=== PATIENT | female | born 1960 | race Caucasian/White ===

== ENCOUNTER 2024-08-16 20:41 | Emergency (ER) | payer BC, SELFPAY ==
--- NOTE | ~2024-08-16 | XR_ITS ---
EXAM: XR knee RT 3V DATE: 08/16/2024 21:04 HISTORY: SWELLING TO RIGHT KNEE SINCE TONIGHT. NKI. . COMPARISON: None available. FINDINGS: Decreased mineralization. No fracture or dislocation. No lytic or blastic lesion. Mild tri compartmental osteoarthritic change. No erosion or periosteal change. Soft tissues within normal limi ts. IMPRESSION: No acute osseous finding in the right knee. Reviewed, dictated and finalized at location [facility]
[2024-08-16 20:44] VITALS: BP 174/91; PULSE 105; RESP 18; TEMP 36.4; O2SAT 100
--- OUTSIDE RECORDS SUMMARY | 2024-08-16 20:45 | XMS_ITS | Continuity of Care Document ---
Author Organization [facility] Address [address] [facility] [place] [address] Phone Care Team Providers Care Parer Name Role Phone Jarrell Owens MD Unavailable Unavailable Allergies, Adverse Reactions, Alerts Substance Reaction Status Criticality No Known Allergies Active No Inform ation Medications Medication Instructions Dosage Effective Dates (start - stop) Status Comments ProAir HFA 90 mcg/actuation Aerosol Inhaler inhale 2 puff by inhalation route every 4 - 6 hours as needed - Active Singulair 10 mg tablet take 1 tablet (10MG) by oral route every day in the evening 10 MG - Active Procedures Procedure Date OFFICE/OUTPATIENT VISIT, EST OFFICE/OUTPATIENT VISIT, EST Advance Directives Directive Yes / No Effective Date File Name No Information Encounters Encounter Description Practice Location Reason(s) For Visit Diagnoses Date Provider Providers Copied on Encounter [facility], [address] [place], [place], [id number], tel:[phone] [facility] No Information [address] [place], [address] , [place]. tel:[phone] OFFICE/OUTPA TIENT VISIT, EST [facility], [address] [place], [place], [address], [place] tel:[phone] [facility] HTN (chief complaint) cough (chief complaint) Hypertension, UnspecifiedAllergic rhinitis, cause unspecifiedBronchit is, Acute [address] [place], [place], [id number] , [place]. tel:[phone] Referring Provider: Jarrell Owens, [address] [facility] [address], [place], [place], [id number]. tel:[phone] OFFICE/OUTPA TIENT VISIT, EST [facility], [address], [place], [place], [address], [place] tel:[phone] [facility] HTN (chief complaint) weight gain (chief complaint) Hypertension, UnspecifiedAbnormal weight gain [address], [place], [place], [address] , [place]. tel:[phone] Referring Provider: Jarrell Owens, [address] [place], [place], [address]. tel:[phone] Family History Family Member Type Diagnosis Age At Onset Brother Problem (finding) Alive and well Mother Problem (finding) CHF Father Problem (finding) Unknown Disease Payers Payer name Insurance type Covered constitution party ID Authoriza tion(s) No Information Social History Type Description Quantity Date Captured Comments Sex Female Smoking Status No Information Chief Complaint And Reason For Visit No Information Plan Of Treatment Date Type Action Status No Information History Of Present Illness Encounter Date Complaint History Of Prese nt Illness No Information Instructions Date Instruction Additional Infor mation No Information Assessments Type Assessment Date No Information
--- OUTSIDE RECORDS SUMMARY | 2024-08-16 20:45 | XMS_ITS | CONTINUITY OF CARE DOCUMENT ---
Author Name brianne decker Address Unknown Organization [facility] Address [address] [place] [address] [address] [place] [address] Phone [phone] Care Team Providers Care Blacktop Spreader Name Role Phone Cristian HINES, Geoff Unavailable [phone] OMA HINES, RUNDA Unavailable OMA HINES, RUNDA Unavailable PROBLEMS Condition Status Date Provider Notes Chest pain active Geoff Foster MD Palpitations active Geoff Foster MD HTN essential active Geoff Foster MD HYPERCHOLESTEROLEMIA active Geoff Foster MD ENCOUNTERS Date Type Provider Location Encounter Diag nosis - In-person encounter Office Visit Geoff Foster MD [facility] - In-person encounter Office Visit Geoff Foster MD [facility] Chest painPalpitationsHTN essentialHYPERCHOLESTEROLEMIA VITAL SIGNS Date Observation Value Provider Body Mass Index (Ratio) 20.72 kg/m2 [place] Foster MD blood pressure, diastolic 86 mm[Hg] Li nkLogic blood pressure, systolic 168 mm[Hg] Kelsie kLogic blood pressure, diastolic 86 mm[Hg] Ca therine Harvinder blood pressure, systolic 168 mm[Hg] Cat herine Harvinder oxygen saturation, oximetry 78 % Kristen Harvinder pulse rate 78 /min Kristen Harvinder respiratory rate E&M 16 /min Catheri ne Priddy weight E&M 117 [lb_av] Kristen Priddy blood pressure, cuff size regular Ca therine Priddy height E&M 63 [in_i] Kristen Priddy Body Mass Index (Ratio) 20.90 kg/m2 Damián en Roland blood pressure, diastolic 78 mm[Hg] Li nkLogic blood pressure, systolic 162 mm[Hg] Kelsie kLogic blood pressure, diastolic 78 mm[Hg] Sa ra Dobbins blood pressure, systolic 162 mm[Hg] Graham a Dobbins oxygen saturation, oximetry 99 % Eda Dobbins respiratory rate E&M 18 /min Eda Si ms pulse rate 107 /min Eda Dobbins weight E&M 118 [lb_av] Eda Dobbins height E&M 63 [in_i] Eda Dobbins ALLERGIES No Known Drug Allergies HISTORY OF MEDICATION USE Medication Status Instructions Dates Provider Indications Com ments metoprolol tartrate 25 mg tablet active Take 1 tablet by mouth twice a day Geoff Foster MD losartan-hydroch lorothiazide 100-12.5 mg tablet active Take 1 tablet by mouth once a day Eda Dobbins SOCIAL HISTORY Date Observation Value Provider smoking status Never smoker Geoff weaver MD social history reviewed E&M revi ewed - no changes required Geoff Foster MD social history E&M S moking History: Frederic chau has never smoked. Geoff Foster MD social history reviewed E&M revi ewed - no changes required Geoff Foster MD social history E&M S moking History: Frederic chau has never smoked. Geoff Foster MD smoking status Never smoker Eda Dobbins INSURANCE PROVIDERS Payer name Policy type / Coverage type Praveen red democrat ID [facility] Medicaid [id number] ADVANCE DIRECTIVES Name Date DISCUSSED - NO DECISION MADE TREATMENT PLAN Date Name Performer [id number],C,N o recurrence of pain. Stress test was normal. Pt has been reassured. Geoff Foster MD [id number],C,R eports fewer palpitations since she reduced caffeine intake. Geoff Foster MD [id number],S,O n losartan, HCTZ. Seems to be well-controlled. She continues to monitor her blood pressure regularly. Geoff Foster MD [id number],C,W as on statins for a year but she stopped them as she did not like the way she felt on them. Geoff Foster MD [id number],C,S he has been experiencing palpitations and CP for years. Has uncontrolled HTN and CHOL. Due to her sx and cardiac risk factors, will assess an echo and a stress test.Murmur noted on exam. Geoff Foster MD [id number],C,B een experiencing for years. WIll assess a rn cardiac rehab as they are disruptful to her life. Geoff Foster MD [id number],C, B P has been uncontrolled for years. She checks her BPs at home, reports 140-160 systolic range. Will start her on Metoprolol 25mg bid. C urrently on Losartan-hydrochlorothiazide 100-12.5 Mg . Geoff Foster MD Cardiology:No recurr ence of pain. Stress test was normal. Pt has been reassured. Geoff Foster MD Cardiology:Reports f ewer palpitations since she reduced caffeine intake. Geoff Foster MD Cardiology:On losart an, HCTZ. Seems to be well-controlled. She continues to monitor her blood pressure regularly. Geoff Foster MD Cardiology:Was on st atins for a year but she stopped them as she did not like the way she felt on them. Geoff Foster MD Cardiology:She has b een experiencing palpitations and CP for years. Has uncontrolled HTN and CHOL. Due to her sx and cardiac risk factors, will assess an echo and a stress test.Murmur noted on exam. Geoff Foster MD Cardiology:Been expe riencing for years. WIll assess a rn cardiac rehab as they are disruptful to her life. Geoff Foster MD Cardiology: B P has been uncontrolled for years. She checks her BPs at home, reports 140-160 systolic range. Will start her on Metoprolol 25mg bid. C urrently on Losartan-hydrochlorothiazide 100-12.5 Mg . Geoff Foster MD Date Name Monitor - Telemetry (Mobile Cardiac) Stress Exercise Card iolite Complete Echo HISTORY OF PROCEDURES Procedure Date Procedure Name Provider Procedure Notes S tatus EKG Geoff Foster MD complet ed
--- NOTE | 2024-08-16 21:18 | ED.LOWEXIN ---
HPI - Extremity Injury (Lower) General Chief Complaint: Extremity Problem,Nontraumatic Stated Complaint: lower extremity problem Time Seen by Provider: 08/16/24 20:54 Source: patient Mode of arrival: ambulatory History of Present Illness HPI Narrative: 64-year-old female with a history of hypertension presented with acute onset -- right knee pain with swelling. No trauma. decreased range of motion. She noted erythema around the knee. Subsequently the knee pain has decreased -- right lateral thigh pain for the past few days which has been radiating down the lateral thigh. MD complaint: knee injury Onset (ago): hour(s) ( 2 hours) Injury: Right: knee Type of Injury: other ( no injury) Place: home Relieving factors: immobilization Exacerbating factors: weight bearing and movement Other symptoms: none Related Data Allergies Allergy/AdvReac Type Severity Reaction Status Date / Time lisinopril Allergy Severe HIVES Verified 08/16/24 20:55 Review of Systems Review of Systems: All systems reviewed & are unremarkable except as noted in HPI and below PMFSH Past Medical History Medical History (Updated 08/16/24 @ 21:41 by Jono Qureshi MD) Hypertension Osteoporosis Exam Narrative: blood pressure is 174/91. Afebrile Const: General: ill appearing Nutritional Appearance: well nourished Orientation/consciousness: patient oriented x3 Limitations: no limitations HENMT: Head: normal to inspection Ears: external ears normal Face/Nose/Sinus: Normal external nose present Face and sinus: normal facial exam Mouth: Yes Normal oral and palatal mucosa present Throat: posterior oropharynx normal Eyes: Conjunctivae: conjunctivae normal Pupils: Equal, round and reactive pupils present EOM: EOMs intact bilaterally Direct Ophthalmoscopy: no photophobia Neck: Neck: normal visual inspection, no lymphadenopathy and no meningeal signs Chest: Chest palpation & inspection: normal inspection of the chest Resp: Effort & Inspection: normal respiratory effort Auscultation: clear to auscultation bilaterally Cardio: Rate: regular rate Rhythm: regular rhythm GI: GI Palp: Yes Soft to palpation Auscultation: normal bowel sounds Other: no tenderness/rigidity /rebound : General: Yes no CVA tenderness Back/Spine/Pelvis: Back: no CVA tenderness Skin: General skin exam: normal color Rashes: no rashes Wounds: no wounds Neuro: General: patient oriented x3, moves all extremities, no meningeal signs, no focal motor deficits and CN's II-XI intact bilaterally Cranial nerves: Yes Nystagmus not present Speech: normal speech Extrem: General: normal to inspection and no clubbing, cyanosis or edema Other: right knee-- no swelling. Erythema over the knee. Tenderness on palpation. Decreased range of motion. Right lateral thigh pain over the greater trochanter with tenderness. Suggestive of trochanteric bursitis Psych: Mental Status: mental status grossly normal Affect: normal affect Attitude: cooperative Course Course Emergency Course: Right knee pain-- x-ray the knee revealed arthritis without acute findings Vital Signs Vital signs: Vital Signs Temperature 36.4 C L 08/16/24 20:44 Pulse Rate 105 H 08/16/24 20:44 Respiratory Rate 18 08/16/24 20:44 Blood Pressure 174/91 H 08/16/24 20:44 Pulse Oximetry 100 08/16/24 20:44 Oxygen Delivery Room Air 08/16/24 20:44 Temperature 36.4 C L 08/16/24 20:44 Pulse Rate 105 H 08/16/24 20:44 Respiratory Rate 18 08/16/24 20:44 Blood Pressure 174/91 H 08/16/24 20:44 Pulse Oximetry 100 08/16/24 20:44 Oxygen Delivery Room Air 08/16/24 20:44 MDM - Extremity Injury (Lower) MDM Narrative Medical decision making narrative: right knee pain /arthritis Differential Diagnosis Differential diagnosis: Likely acute internal derangement of knee Discharge Plan Discharge Clinical Impression: Greater trochanteric bursitis of right hip Acute knee pain Qualifiers: Laterality: right Qualified Code(s): M25.561 - Pain in right knee Patient Disposition: Home, Self-Care Condition: Stable Instructions: Antibiotic Form, Hip Bursitis (ED), Knee Pain (ED) Patient Language: Arabic Prescriptions: New diclofenac sodium 50 mg tablet,delayed release (DR/EC) 50 mg PO Q12H PRN (Reason: pain) Qty: 30 0RF Follow-up/Referrals: UNKNOWN,DOCTOR [Non-Staff] - Time of Disposition: 21:41
--- OUTSIDE RECORDS SUMMARY | 2024-08-16 21:33 | XMS_ITS | Continuity of Care Document ---
Author Organization [facility] Address [address] [employer] [facility] [place] [address] Phone Care Team Providers Care Raise Drill Operator Name Role Phone Jarrell Owens MD Unavailable Unavailable Allergies, Adverse Reactions, Alerts Substance Reaction Status Criticality No Known Allergies Active No Inform ation Medications Medication Instructions Dosage Effective Dates (start - stop) Status Comments Singulair 10 mg tablet take 1 tablet (10MG) by oral route every day in the evening 10 MG - Active ProAir HFA 90 mcg/actuation Aerosol Inhaler inhale 2 puff by inhalation route every 4 - 6 hours as needed - Active Procedures Procedure Date OFFICE/OUTPATIENT VISIT, EST OFFICE/OUTPATIENT VISIT, EST Advance Directives Directive Yes / No Effective Date File Name No Information Encounters Encounter Description Practice Location Reason(s) For Visit Diagnoses Date Provider Providers Copied on Encounter [facility], [address] [place], [place], [id number], tel:[phone] [facility] No Information [address], [place], [address] , [place]. tel:[phone] OFFICE/OUTPA TIENT VISIT, EST [facility], [address] [place], [place], [address], tel:[phone] [facility] HTN (chief complaint) cough (chief complaint) Hypertension, UnspecifiedAllergic rhinitis, cause unspecifiedBronchit is, Acute [address] [place], [place], [address] , [place]. tel:[phone] Referring Provider: Jarrell Owens, [address] [facility] [address], [place], [place], [address]. tel:[phone] OFFICE/OUTPA TIENT VISIT, EST [facility], [address], [place], [place], [address], [place] tel:[phone] [facility] HTN (chief complaint) weight gain (chief complaint) Hypertension, UnspecifiedAbnormal weight gain [address], [place], [place], [address] , [place]. tel:[phone] Referring Provider: Jarrell Owens, [address] [place], [place], [address]. tel:[phone] Family History Family Member Type Diagnosis Age At Onset Brother Problem (finding) Alive and well Mother Problem (finding) CHF Father Problem (finding) Unknown Disease Payers Payer name Insurance type Covered libertarian ID Authoriza tion(s) No Information Social History [...]
--- OUTSIDE RECORDS SUMMARY | 2024-08-16 21:33 | XMS_ITS | CONTINUITY OF CARE DOCUMENT ---
Author Name brianne decker Address Unknown Organization [facility] Address [address] [place] [address] [address] [place] [address] Phone [phone] Care Team Providers Care Industrial Engineering Manager Name Role Phone Cristian HINES, Geoff Unavailable OMA HINES, RUNDA Unavailable [phone] OMA HINES, RUNDA Unavailable [phone] PROBLEMS Condition Status Date Provider Notes Chest pain active Geoff Foster MD Palpitations active Geoff Foster MD HTN essential active Geoff Foster MD HYPERCHOLESTEROLEMIA active Geoff Foster MD ENCOUNTERS Date Type Provider Location Encounter Diag nosis - In-person encounter Office Visit Geoff Fostre MD [facility] - In-person encounter Office Visit Geoff Foster MD [facility] Chest painPalpitationsHTN essentialHYPERCHOLESTEROLEMIA VITAL SIGNS Date [...] respiratory rate E&M 16 /min Catheri ne Nevis weight E&M 117 [lb_av] Kristen Nevis blood pressure, cuff size regular Ca therine Nevis height E&M 63 [in_i] Kristen Nevis Body Mass Index (Ratio) 20.90 kg/m2 Damián [...] Policy type / Coverage type Praveen red green party ID [facility] Medicaid [id number] ADVANCE DIRECTIVES Name Date DISCUSSED - NO DECISION MADE TREATMENT PLAN Date Name Performer [id number],C,N o recurrence of pain. Stress test was normal. Pt has been reassured. Geoff Foster MD [id number],C,R eports fewer palpitations since she reduced caffeine intake. Geoff Foster MD [id number],S,O n losartan, HCTZ. Seems to be well-controlled. She continues to monitor her blood pressure regularly. Geoff Foster MD [id number],C,W as on statins for a year but she stopped them as she did not like the way she felt on them. Geoff Foster MD [id number],C,S he has been experiencing palpitations and CP for years. Has uncontrolled HTN and CHOL. Due to her sx and cardiac risk factors, will assess an echo and a stress test.Murmur noted on exam. Geoff Foster MD [id number],C,B een experiencing for years. WIll assess a school lunch monitor as they are disruptful to her life. Geoff Foster MD [id number],C, B P has been uncontrolled for years. [...] expe riencing for years. WIll assess a school lunch monitor as they are disruptful to her life. [...]
--- OUTSIDE RECORDS SUMMARY | 2024-08-16 21:33 | XMS_ITS | Data Portability ---
Author Organization [facility] codetag, Main Office Address [address] [place] [address] Assessment No assessment recorded. Plan of Treatment Reminders Order Date Submit Date Provider Last Modified By Organization Details Last Modified Time Details Appointments None recorded. Lab CMP, serum or plasma 2022 023 ASHA Not available 3 14:52:46 lipid panel, blood 2022 023 [email or web address] Not available 3 10:23:23 noninvasive colorectal cancer DNA + occult blood screening, QL, stool 2022 023 [email or web address] (Cologuard Orders Only), [address], [place], [address], 3 10:23:24 urinalysis, dipstick 2022 023 hannah [address], [place], [address], 3 16:16:24 culture, urine 2022 023 [facility], [address] [facility], [place], [address], 3 11:49:08 hemoglobin A1C, fingerstick [address], [place], [address], 4 15:24:27 Referral None recorded. Procedures None recorded. Surgeries None recorded. Imaging bone density 2022 023 [facility], [facility] [place], [address], 3 14:50:32 MAMMO, screening, digital, bilateral 2022 023 [facility], [address] [place], [address], 3 14:53:59 Medication Orders alprazolam 0.5 mg tablet 2022 023 [facility][id number], [address] [place] [address], [id number], 3 15:47:18 losartan 100 mg-hydrochl orothiazide 12.5 mg tablet 2022 023 [facility] #67420, [address] [place] [address], [id number], 3 15:47:56 ciprofloxac in 500 mg tablet 2022 023 [facility] #33246, [address] [place] [address], [id number], 3 12:40:25 alprazolam 0.5 mg tablet 2023 024 [facility] #45566, [address] [place] [address], [id number], 4 10:26:40 Patient TargetsNo targets recorded. Patient InstructionsNo instructions recorded. Reason for Referral None Reported. Results Created Date Observation Date Name Description Value Unit Range Abnormal Flag Note LastModifiedBy Organization Detail LastModifiedTime 09/17/1909/16/2020 CMP, serum or plasm a sodium 133 mmol/ L 137-14 5 low Not Available [facility] (Lab) [address] [place], [address], 09/16/2020 13:22:10 09/17/19 21 09/16/2020 CMP, serum or plasm a potassium 4.2 mmol/ L 3.5-5. 1 Not Available [facility] (Lab) [address] [place], [address], 09/16/2020 13:22:10 09/17/19 21 09/16/2020 CMP, serum or plasm a chloride 97 mmol/ L 98-107 low Not Available [facility] (Lab) [address] [place], [address], 09/16/2020 13:22:10 09/17/19 21 09/16/2020 CMP, serum or plasm a carbon dioxide 26 mmol/ L 22-30 Not Available [facility] (Lab) [address] [place], [address], 09/16/2020 13:22:10 09/17/19 21 09/16/2020 CMP, serum or plasm a agap 14.2 mmol/ L 14-22 Not Available [facility] (Lab) [address] [place], [address], 09/16/2020 13:22:10 09/17/19 21 09/16/2020 CMP, serum or plasm a glucose 101 mg/dL 70-99 high Not Available [facility] (Lab) [address] [place], [address], 09/16/2020 13:22:10 09/17/19 21 09/16/2020 CMP, serum or plasm a BUN 12 mg/dL 8-19 Not Available [facility] (Lab) [address] [place], [address], 09/16/2020 13:22:10 09/17/19 21 09/16/2020 CMP, serum or plasm a creatinine 0.61 mg/dL 0.66-1 .25 low Not Available [facility] (Lab) [address] [place], [address], 09/16/2020 13:22:10 09/17/19 21 09/16/2020 CMP, serum or plasm a aspartate aminotransfe rase 25 U/L 15-37 Not Available [facility] (Lab) [address] [place], [address], 09/16/2020 13:22:10 09/17/19 21 09/16/2020 CMP, serum or plasm a GFR >60 GFR is calcu lated based on [place] of [facility] (Afri can Ameri can or Non-A frica n Ameri can) Age and Sex from the [facility] Sadi trati on Infor matio n. REFER ENCE RANGE S: Commerce ge GFR for Healt hy Adult s: >60 mL/mi n/1.7 3 m Chron ic Kidne y Disea se: 15 - 60 mL/mi n/1.7 3 m Kidne y Failu re: <15 mL/mi n/1.7 3 m REFER ENCE RANGE S ARE NOT AVAIL ABLE FOR [facility] NTS <18 OR >70 YEARS OF AND WILL BE RESUL PRANAV WITH TNP (TEST NOT PERFO RMED) Not Available [facility] (Lab) [address] [place], [address], 09/16/2020 13:22:10 09/17/1909/16/2020 CMP, serum or plasm a alkaline phosphatase 84 U/L 38-126 Not Available [facility] (Lab) [address] [place], [address], 09/16/2020 13:22:10 09/17/1909/16/2020 CMP, serum or plasm a alanine aminotransfe rase 14 U/L 0-35 Not Available [facility] (Lab) [address] [place], [address], 09/16/2020 13:22:10 09/17/19 21 09/16/2020 CMP, serum or plasm a bilirubin, total 0.80 mg/dL 0.20-1 .30 Not Available [facility] (Lab) [address] [place], [address], 09/16/2020 13:22:10 09/17/19 21 09/16/2020 CMP, serum or plasm a calcium 10.0 mg/dL 8.4-10 .2 Not Available [facility] (Lab) [address] [place], [address], 09/16/2020 13:22:10 09/17/19 21 09/16/2020 CMP, serum or plasm a total protein 7.6 g/dL 6.3-8. 2 Not Available [facility] (Lab) [address] [place], [address], 09/16/2020 13:22:10 09/17/19 21 09/16/2020 CMP, serum or plasm a albumin 4.8 g/dL 3.4-5. 0 Not Available [facility] (Lab) [address] [place], [address], 09/16/2020 13:22:10 09/17/19 21 09/16/2020 CMP, serum or plasm a globulin 2.8 g/dL 2.6-4. 2 Not Available [facility] (Lab) [address] [place], [address], 09/16/2020 13:22:10 09/17/19 21 09/16/2020 CMP, serum or plasm a A/G ratio 1.7 ratio 1.0-2. 0 Not Available [facility] (Lab) [address] [place], [address], 09/16/2020 13:22:10 09/17/19 21 09/16/2020 lipid panel , serum LDL cholesterol, calculated 147 mg/dL 0-130 high NIH KEV NSUS REPOR T RECOM MENDA TIONS FOR LDL: ADULT CHILD LOW RISK <130 <110 (OPTI MAL LDL) <100 ----- BORDE RLINE : 130-1 59 ----- HIGH RISK: >160 >130 A TRIGL YCERI DE RESUL T >400 INVAL IDATE S THE CALCU LATIO N FOR LDL FRACT IONAT ION - THE LDL RESUL T WILL NOT BE REPOR PRANAV. Not Available [facility] (Lab) [address] [place], [address], 09/16/2020 13:21:58 09/17/19 21 09/16/2020 lipid panel , serum cholesterol 247 mg/dL 140-19 9 high NIH KEV NSUS RECOM MENDA TION FOR ADELINA STERO L: ADULT CHILD LOW RISK: <200 <170 BORDE RLINE : <200- 239 ----- HIGH RISK: >240 >200 Not Available [facility] (Lab) [address] [place], [address], 09/16/2020 13:21:58 09/17/19 21 09/16/2020 lipid panel , serum triglyceride s 69 mg/dL 0-150 NIH KEV NSUS REPOR T RECOM MENDA TION FOR TRIGL YCERI AJITH: ADULT CHILD LOW RISK: <150 ----- BODER LINE: 150-1 99 ----- HIGH RISK: >200 ----- Not Available [facility] (Lab) [address] [place], [address], 09/16/2020 13:21:58 09/17/19 21 09/16/2020 lipid panel , serum HDL cholesterol 86 mg/dL 40- Not Available [facility] (Lab) [address] [place], [address], 09/16/2020 13:21:58 10/10/19 23 10/09/2022 COMPR EHENS DENIZ METAB OLIC PANEL sodium 132 mmol/ L 137-14 5 low Not Available [facility] (Lab) [address] [place], [address], 10/09/2022 13:50:14 10/10/19 23 10/09/2022 COMPR EHENS DENIZ METAB OLIC PANEL potassium 3.9 mmol/ L 3.5-5. 1 Not Available [facility] (Lab) [address] [place], [address], 10/09/2022 13:50:14 10/10/19 23 10/09/2022 COMPR EHENS DENIZ METAB OLIC PANEL chloride 97 mmol/ L 98-107 low Not Available [facility] (Lab) [address] [place], [address], 10/09/2022 13:50:14 10/10/19 23 10/09/2022 COMPR EHENS DENIZ METAB OLIC PANEL carbon dioxide 28 mmol/ L 22-30 Not Available [facility] (Lab) [address] [place], [address], 10/09/2022 13:50:14 10/10/19 23 10/09/2022 COMPR EHENS DENIZ METAB OLIC PANEL anion gap 10.9 mmol/ L 14-22 low Not Available [facility] (Lab) [address] [place], [address], 10/09/2022 13:50:14 10/10/19 23 10/09/2022 COMPR EHENS DENIZ METAB OLIC PANEL glucose 112 mg/dL 70-99 high Not Available [facility] (Lab) [address] [place], [address], 10/09/2022 13:50:14 10/10/19 23 10/09/2022 COMPR EHENS DENIZ METAB OLIC PANEL BUN 12 mg/dL 8-19 Not Available [facility] (Lab) [address] [place], [address], 10/09/2022 13:50:14 10/10/19 23 10/09/2022 COMPR EHENS DENIZ METAB OLIC PANEL creatinine 0.59 mg/dL 0.66-1 .25 low Not Available [facility] (Lab) [address] [place], [address], 10/09/2022 13:50:14 10/10/1910/09/2022 COMPR EHENS DENIZ METAB OLIC PANEL GFR >60 Refer ence Range : Commerce ge GFR Healt hy Adult : >60 mL/mi n/1.7 3 m2 Chron ic Kidne y Disea se: 15-60 mL/mi n/1.7 3 m2 Kidne y Failu re: <15/m L/min /1.73 m2 www.n iddk. nih.g ov The MDRD study equat ion has not been valid ated in child jase <18 years of age; pregn ant women ; the elder ly >85 years of age; or in some racia l or ethni c subgr oups, such as Hispa nics. Outsi de the valid ated scott eters , estim ated GFR is less accur ate, requi ring clini luis judgm ent on a case- by-ca se basis . Clini luis inter preta tion for other races and ages must be made by the clini brigitte. The MDRD study equat ion has not been valid ated for the evalu ation of serum creat inine relat ed to nutri alice l statu s or medic ation usage . For perso ns <18 years of age, a pedia tric GFR calcu lator is avail able on the [facility] websi te: https ://lisa fisher.chandlre ceballos.o rg/pr ofess ional s/kdo qi/gf r_cal culat or Not Available [facility] (Lab) [address] [place], [address], 10/09/2022 13:50:14 10/10/1910/09/2022 COMPR EHENS DENIZ METAB OLIC PANEL alkaline phosphatase 91 U/L 38-126 Not Available [facility] (Lab) [address] [place], [address], 10/09/2022 13:50:14 10/10/19 23 10/09/2022 COMPR EHENS DENIZ METAB OLIC PANEL alanine aminotransfe rase 19 U/L 0-35 Not Available [facility] (Lab) [address] [place], [address], 10/09/2022 13:50:14 10/10/19 23 10/09/2022 COMPR EHENS DENIZ METAB OLIC PANEL aspartate aminotransfe rase 29 U/L 15-37 Not Available [facility] (Lab) [address] [place], [address], 10/09/2022 13:50:14 10/10/19 23 10/09/2022 COMPR EHENS DENIZ METAB OLIC PANEL bilirubin, total 0.70 mg/dL 0.20-1 .30 Not Available [facility] (Lab) [address] [place], [address], 10/09/2022 13:50:14 10/10/19 23 10/09/2022 COMPR EHENS DENIZ METAB OLIC PANEL calcium 9.6 mg/dL 8.4-10 .2 Not Available [facility] (Lab) [address] [place], [address], 10/09/2022 13:50:14 10/10/19 23 10/09/2022 COMPR EHENS DENIZ METAB OLIC PANEL total protein 7.6 g/dL 6.3-8. 2 Not Available [facility] (Lab) [address] [place], [address], 10/09/2022 13:50:14 10/10/19 23 10/09/2022 COMPR EHENS DENIZ METAB OLIC PANEL albumin 4.7 g/dL 3.4-5. 0 Not Available [facility] (Lab) [address] [place], [address], 10/09/2022 13:50:14 10/10/19 23 10/09/2022 COMPR EHENS DENIZ METAB OLIC PANEL globulin 2.9 g/dL 2.6-4. 2 Not Available [facility] (Lab) [address] [place], [address], 10/09/2022 13:50:14 10/10/19 23 10/09/2022 COMPR EHENS DENIZ METAB OLIC PANEL A/G ratio 1.6 ratio 1.0-2. 0 Not Available [facility] (Lab) [address] [place], [address], 10/09/2022 13:50:14 10/10/19 23 10/09/2022 LIPID PANEL cholesterol 231 mg/dL 140-19 9 high NIH KEV NSUS RECOM MENDA TION FOR ADELINA STERO L: ADULT CHILD LOW RISK: <200 <170 BORDE RLINE : <200- 239 ----- HIGH RISK: >240 >200 Not Available [facility] (Lab) [address] [place], [address], 10/09/2022 13:50:17 10/10/1910/09/2022 LIPID PANEL triglyceride s 77 mg/dL 0-150 NIH KEV NSUS REPOR T RECOM MENDA TION FOR TRIGL YCERI AJITH: ADULT CHILD LOW RISK: <150 ----- BODER LINE: 150-1 99 ----- HIGH RISK: >200 ----- Not Available [facility] (Lab) [address] [place], [address], 10/09/2022 13:50:17 10/10/1910/09/2022 LIPID PANEL HDL cholesterol 96 mg/dL 40- Not Available [facility] (Lab) [address] [place], [address], 10/09/2022 13:50:17 10/10/19 23 10/09/2022 LIPID PANEL LDL cholesterol, calculated 120 mg/dL 0-130 NIH KEV NSUS REPOR T RECOM MENDA TIONS FOR LDL: ADULT CHILD LOW RISK <130 <110 (OPTI MAL LDL) <100 ----- BORDE RLINE : 130-1 59 ----- HIGH RISK: >160 >130 A TRIGL YCERI DE RESUL T >400 INVAL IDATE S THE CALCU LATIO N FOR LDL FRACT IONAT ION - THE LDL RESUL T WILL NOT BE REPOR PRANAV. Not Available [facility] (Lab) [address], [place], [address], 10/09/2022 13:50:17 10/11/19 23 10/10/2022 COLOG UARD cologuard result reportable NEGATI VE negati ve NEGAT DENIZ TEST RESUL T. A negat deniz Colog uard resul t indic ates a low likel ihood that a color ectal cance r (CRC) or advan oswaldo adeno ma (ty omato us polyp s with more advan oswaldo pre-m align ant featu res) is prese nt. The chanc e that a perso n with a negat deniz Colog uard test has a color ectal cance r is less than 1 in 1500 (nega tive predi ctive value >99.9 %) or has an advan oswaldo adeno ma is less than 5.3% (nega tive predi ctive value 94.7% ). These data are based on a prosp ectiv e cross -sect ional study of 10,00 0 indiv idual s at [facility] risk for color ectal cance r who were scree en with both Colog uard and colon oscop y. (Harsh Norton et al, N Engl J Med 2014; 370(1 4):12 86-12 97) The aspen l value (refe rence range ) for this assay is negat deniz. COLOG UARD RE-SC ALEXUS NG RECOM MENDA TION: Perio dic color ectal cance r scree zuleyka is an impor tant part of preve ntive healt hcare for asymp tomat ic indiv idual s at [facility] risk for color ectal cance r. Follo wing a negat deniz Colog uard resul t, the Ameri can Cance r Socie ty and U.S. Multi -Soci ety Task Force scree zuleyka guide lines recom mend a Colog uard re-sc alexus cruz inter digna of 3 years . Refer ences : [place] can Cance r Socie ty Guide line for Color ectal Cance r Scree zuleyka: https ://lisa w.can cer.o rg/ca ncer/ colon -rect al-ca ncer/ detec tion- diagn osis- stagi ng/ac s-rec ommen datio ns.ht ml.; Beck BAILEY, Ashley PENDLETON, Sebas DE LA VEGA, Color ectal Cance r Scree zuleyka: Recom menda tions for Physi cians and Patie nts from the U.S. Multi -Soci ety Task Force on Color ectal Cance r Scree zuleyka , Maryuri harente rolog y 2017; 112:1 016-1 030. TEST DESCR IPTIO N: [place] site algor ithmi c karri sis of stool DNA-b iomar kers with hemog lobin immun oassa y. Quant itati ve value s of indiv idual bioma rkers are not repor table and are not assoc iated with indiv idual bioma rker resul t refer ence range s. Colog uard is inten ded for color ectal cance r scree zuleyka of adult s of eithe r sex, 45 years or older , who are at [facility] for color ectal cance r (CRC) . Colog uard has been appro philipp for use by the U.S. FDA. The perfo rmanc e of Colog uard was estab lishe d in a cross secti onal study of [facility] adult s aged 50-84 . Colog uard perfo rmanc e in patie nts ages 45 to 49 years was estim ated by sub-g roup karri sis of near- age group s. Colon oscop ies perfo rmed for a posit deniz resul t may find as the most clini paula signi ficdemar t lesio n: color ectal cance r [4.0% ], advan oswaldo adeno ma (incl uding sessi le bryan pranav polyp s great er than or equal to 1cm diame ter) [20%] or non- advan oswaldo adeno ma [31%] ; or no color ectal neopl [place] [45%] . These estim ates are deriv ed from a prosp ectiv e cross -sect ional scree zuleyka study of ,00 0 indiv idual s at [facility] risk for color ectal cance r who were scree en with both Colog uard and colon oscop y. (Harsh Norton et al, N Engl J Med 2014; 370(1 4):12 86-12 97.) Colog uard may produ ce a false negat deniz or false posit deniz resul t (no color ectal cance r or preca ncero us polyp prese nt at colon oscop y follo w up). A negat deniz Colog uard test resul t does not guara ntee the absen ce of CRC or advan oswaldo adeno ma (pre- cance r). The curre nt Colog uard scree zuleyka inter digna is every 3 years . (Amer ican Cance r Socie ty and U.S. Multi -Soci ety Task Force ). Colog uard perfo rmanc e data in a 0 patie nt pivot al study using colon oscop y as the refer ence metho d can be acces sed at the follo wing locat ion: www.e xactl abs.c om/re jason . Addit ional descr iptio n of the Colog uard test proce ss, warni ngs and preca ution s can be found at www.c jorgeu henri.c om. Not Available [facility] (Cologuard Orders Only) [address], [place], [address], 10/23/2022 14:57:21 06/22/20 23 06/22/2023 urina lysis , dipst ick Leukocytes (reference range: negative asia/? ? ?l) Negati ve Not Available [facility] [address], [place], [address], 06/22/2023 12:37:49 06/22/20 23 06/22/2023 urina lysis , dipst ick Nitrite (reference rage: negative mg/dl) positi ve Not Available [address], [place], [address], 06/22/2023 12:37:49 06/22/20 23 06/22/2023 urina lysis , dipst ick Urobilinogen (reference range: 0.2-1 mg/dl) 0.2 Not Available [address], [place], [address], 06/22/2023 12:37:49 06/22/2006/22/2023 urina lysis , dipst ick Protein (reference range: negative mg/dl) Negati ve Not Available [address], [place], [address], 06/22/2023 12:37:49 06/22/2006/22/2023 urina lysis , dipst ick pH (reference range: 5-7) 6.5 Not Available [address], [place], [address], 06/22/2023 12:37:49 06/22/2006/22/2023 urina lysis , dipst ick Blood (reference range: negative Darrick/? ? ?l) Negati ve Not Available [address], [place], [address], 06/22/2023 12:37:49 06/22/2006/22/2023 urina lysis , dipst ick Specific [place] (reference range: 1.005-1.030) 1.010 Not Available [address], [place], [address], 06/22/2023 12:37:49 06/22/20 23 06/22/2023 urina lysis , dipst ick Ketone (reference range: negative mg/dl) Negati ve Not Available [address], [place], [address], 06/22/2023 12:37:49 06/22/20 23 06/22/2023 urina lysis , dipst ick Bilirubin (reference range: negative mg/dl) Negati ve Not Available [address], [place], [address], 06/22/2023 12:37:49 06/22/2006/22/2023 urina lysis , dipst ick Glucose (reference range: negative mg/dl) Negati ve Not Available [address], [place], [address], 06/22/2023 12:37:49 06/22/20 23 06/22/2023 urina lysis , dipst ick Appearance Clear Not Available [address], [place], [address], 06/22/2023 12:37:49 06/22/20 23 06/22/2023 urina lysis , dipst ick Color Yellow Not Available [address], [place], [address], 06/22/2023 12:37:49 07/24/19 24 07/24/2023 hemog lobin A1C, finge rstic k HgbA1C 5.0 Not Available [address], [place], [address], 07/24/2023 15:08:23 10/26/19 22 10/26/2021 elect rocar diogr am No observ ation record ed. MIGRATION. [facility] [address] , [address], [place], [address], 09/13/2022 01:26:07 10/27/19 22 10/25/2021 elect misanette huffgr am No observ ation record ed. MIGRATION. [facility] [address] , [address], [place], [address], 09/13/2022 01:26:07 12/08/19 22 12/06/2021 cardi ovasc ular stres s test w/ exerc ise, jeff nuous EKG, and/o r pharm a No observ ation record ed. MIGRATION. [facility] [address], [place], [address], 09/13/2022 01:26:07 12/08/19 22 12/06/2021 strelarissa s echoc ardio gram No observ ation record ed. MIGRATION. [id number] [facility] [address], [place], [address], 09/13/2022 01:26:07 01/03/20 22 cardi ac monit or No observ ation record ed. MIGRATION. [id number] [facility] [address], [place], [address], 09/13/2022 01:26:07 01/03/20 22 01/02/2022 cardi ac monit or No observ ation record ed. [id number] [facility] [address], [place], [address], 09/13/2022 01:26:07 10/11/19 23 DEXA, axial skele ton [facility] [address] [place] [address] [phone] [place] Name: WANDY GREY Access ion #: [id number] Sex: F : 1959 2 Locati on: RA2 Attend ing Physic logan: ANTONIO HAUSER, RUNDA Orderi ng Physic logan: ANTONIO IB, RUNDA Exam Date: 023 1:13 PM Exam Name: XR DEXA AXIAL/ HIP/PE LVIS/S PINE Admitt ing Diagno sis(es ): RADIOL OGY REPORT - FINAL EXAM: XR DEXA AXIAL/ HIP/PE LVIS/S PINE HISTOR Y: screen ing 62-yea r-old female with osteop orosis screen ing. COMPAR FRANCISCO: None availa ble. TECHNI QUE: Dual energy x-ray of absorp tion examin ation of the bilate ral hips and lumbar spine in AP projec tion was perfor med. FINDIN GS: Lumbar Spine (L1-L4 ): The mean bone minera l densit y is 1.090 g/cm2 hydrox yapati te, correl ating with a T-scor e of -0.8. Bilate ral hips: The mean bone minera l densit y is 0.659 g/cm2 calciu m hydrox yapati te, correl ating with a T-scor e of -2.8. Page 1 of 2 [facility] [place] Name: WANDY GREY Access ion #: [id number] Sex: F : 1959 2 Exam Date: 023 1:13 PM Exam Name: XR DEXA AXIAL/ HIP/PE LVIS/S PINE Admitt ing Diagno sis(es ): IMPRES SILVIO: 1. The patien t's lumbar spine T-scor e is consis tent with normal bone minera l densit y. 2. The patien t's bilate ral hip T-scor e is consis tent with osteop orosis . Accord ing to the World Health Organi zation , T-scor e values greate r than -1.0 are normal , values betwee n -1.0 and -2.5 are catego rized as osteop enia, T-scor e of -2.5 or more are catego rized as osteop orosis . Create d and electr onical ly signed by: Yo clark MD Signed Date: 1:34 PM (CT) Dictat ed by: Yo clark MD DD: 023 1:34 PM (CT) DT: 1:34 PM (CT) Page [address] of [address] (Imaging) [address] [place], [address], 10/12/2022 06:44:58 10/11/19 23 10/10/2022 bone densi ty No observ ation record ed. [address] [facility] [address] [place] [address], [place], [address], 10/12/2022 06:44:58 10/11/19 MAMMO , scree zuleyka, digit al, bilat eral [facility] [address] [place] [address] Patien t Name: WANDY GREY Access ion #: [id number] Sex: F : 1959 2 Locati on: RA2 Attend ing Physic logan: ELKHAT IB, RUNDA Orderi ng Physic logan: ELKHAT IB, RUNDA Exam Date: 023 1:13 PM Exam Name: MG DIGITA L JETT BILAT SCREEN Admitt ing Diagno sis(es ): RADIOL OGY REPORT - FINAL EXAM: MG DIGITA L JETT BILAT SCREEN HISTOR Y: screen ing 62-yea r-old female with no curren t breast compla ints. COMPAR FRANCISCO: None availa ble, baseli ne study. TECHNI QUE: Bilate ral CC and MLO views of the breast s were perfor med. Digita l Mammog luciano images were obtain ed. CAD (compu ter assist ed detect ion) was utiliz ed. FINDIN GS: There are scatte red areas of fibrog landul ar densit y. No masses , asymme tries, suspic ious calcif icatio ns, or adam ectura l distor tion are seen. Page 1 of 2 [facility] [place] Name: WANDY GREY Access ion #: [id number] Sex: F : 1959 2 Exam Date: 023 1:13 PM Exam Name: MG DIGITSalena L JETT BILAT SCREEN Admitt ing Diagno sis(es ): IMPRES SILVIO: BIRADS 1: Assess ment comple te. Negati ve. Recomm end annual screen ing mammog luciano. Accord ing to the [employer], yearly mammog sylvia are recomm ended starti ng at age 40 and contin uing as long as the woman is in good health . Clinic al Breast Exam should be part of the period ic health exam-a bout every 3 years for women in their 20s and 30s and every year for women 40 and over. Breast self-e xam is an option for women in their 20s. Any breast change noted on the breast self-e xam she would be report ed prompt ly to the [facility] er. A negati ve mammog luciano report should not discou rage follow -up or biopsy of a clinic ally signif icant findin g and/or abnorm ality. Dense breast tissue may obscur e small neopla sms. This bolivar le has been entere d into a mammog luciano remind er system with a target date for her next mammog joyce. Create d and electr onical ly signed by: Yo clark MD Signed Date: 023 1:51 PM (CT) Dictat ed by: Yo clark MD DD: 023 1:51 PM (CT) DT: 1:51 PM (CT) Page 2 of 2 [facility] [place] [address] (Imaging) [address] [place], [address], 10/12/2022 06:44:59 10/11/19 23 10/10/2022 MAMMO , scree zuleyka, digit al, bilat eral No observ ation record ed. [email or web address] [address] , [place], [address], 10/11/2022 10:42:13 Result Notes None recorded. Problems Name Problem SNOMED Code Status Onset Date Resolution Date Notes Provider Name and Address Organization Details Recorded Time Hypertensive disorder 82396587 Active Not Available [facility] 3 02:59:23 Anxiety 68662515 Active Not Available [facility] 3 02:59:23 Essential hypertension 02267930 Active Not Available [facility] 3 02:59:23 Hyperlipidemia 23069709 Active 2022 Not Available [facility] 3 02:59:23 Osteoporosis 41848631 Active 2022 Not Available [facility] 3 02:59:23 Dysuria 30528087 Active 2022 Jania Cheung RN [facility], [employer] 3 12:38:01 Dysuria 41641347 Active 2022 ALMA James [address], [place], [address] , [employer] 3 12:38:05 Hyperglycemia 10613048 Active 2023 ALMA James [address], [place], [address] , [employer] 4 15:08:00 SARS-CoV-2 Active 2023 ALMA James [address], [place], [address] , [employer] 4 15:46:58 Problem Notes None recorded. Procedures Surgical History None recorded. Imaging Results Imaging Date Name Status LastModified by Organization Details LastModified Time 10/26/2021 electrocardiogram completed MIGRATION. [id number] [facility] [address] , [address], [place], [address], 09/13/2022 01:26:07 10/25/2021 electrocardiogram completed MIGRATION. 60655 [id number] [facility] [address] , [address], [place], [address], 09/13/2022 01:26:07 12/06/2021 cardiovascular stress test w/ exercise, continuous EKG, and/or pharma completed MIGRATION.32273 [id number] [facility] [address] , [place], [address], 09/13/2022 01:26:07 12/06/2021 stress echocardiogram completed MIGRATION.[id number] [facility] [address], [place], [address], 09/13/2022 01:26:07 01/02/2022 cleaning porter completed MIGRATION.03 012 [id number] [facility] [address], [place], [address], 09/13/2022 01:26:07 01/02/2022 cleaning porter completed MIGRATION. 012 [id number] [facility] [address] , [place], [address], 09/13/2022 01:26:07 10/10/2022 DEXA, axial skeleton completed [email or web address] [facility] (Imaging) [address] [place], [address], 10/12/2022 06:44:58 10/10/2022 bone density completed [email or web address] [facility] [address] [place] [address] , [place], [address], 10/12/2022 06:44:58 10/10/2022 MAMMO, screening, digital, bilateral completed [email or web address] [facility] (Imaging) [address] [place], [address], 10/12/2022 06:44:59 10/10/2022 MAMMO, screening, digital, bilateral completed [email or web address] [facility] [address] [place] [address] , [place], [address], 10/11/2022 10:42:13 Procedure Notes None recorded. Medical Equipment None Reported. Allergies No known drug allergies Medications Name Sig Start Date Stop Date Status Note LastModified by Organization Details LastModified Time losartan 50 mg tablet TAKE 1 TABLET BY MOUTH EVERY DAY 11/06 completed Not Available Not Available Not Available promethazine -DM 6.25 mg-15 mg/5 mL oral syrup Take 5 mL every 4 hours by oral route as needed for 10 days. 2023 active Not Available Not Available Not Avai lable atorvastatin 20 mg tablet Take 1 tablet every day by oral route. active Not Available Not Available No t Available atorvastatin 10 mg tablet TAKE 1 TABLET BY MOUTH EVERY DAY active Not Available Not Available No t Available dexamethason e 6 mg tablet Take 1 tablet every day by oral route in the morning for 7 days. active Not Available Not Available No t Available clindamycin HCl 150 mg capsule 11/06 completed Not Available Not Available Not Available ciprofloxaci n 500 mg tablet Take 1 tablet every 12 hours by oral route for 10 days. active Not Available Not Available No t Available alprazolam 0.5 mg tablet TAKE 1 TABLET BY MOUTH TWICE DAILY NEEDED 2024 active Not Available Not Available Not Avai lable omeprazole 20 mg capsule,elo yed release Take 1 capsule every day by oral route. active Not Available Not Available No t Available irbesartan 150 mg tablet Take 1 tablet every day by oral route for 30 days. 08/27 completed Not Available Not Available Not Available losartan 100 mg tablet TAKE 1 TABLET BY MOUTH EVERY DAY 02/26 completed Not Available Not Available Not Available amoxicillin 875 mg-potassium clavulanate 125 mg tablet 11/06 completed Not Available Not Available Not Available olmesartan 40 mg tablet TAKE 1 TABLET BY MOUTH EVERY DAY 08/27 completed Not Available Not Available Not Available Benicar 20 mg tablet Take 1 tablet every day by oral route. 08/29 completed Not Available Not Available Not Available metoprolol tartrate 25 mg tablet active Not Available Not Available No t Available ibandronate 150 mg tablet Take by oral route for 90 days. active Not Available Not Available No t Available losartan 100 mg-hydrochlo rothiazide 12.5 mg tablet TAKE 1 TABLET BY MOUTH EVERY DAY active Not Available Not Available No t Available Paxlovid 300 mg (150 mg x 2)-100 mg tablets in a dose pack Take 3 tablets twice a day by oral route for 5 days. active Not Available Not Available No t Available Vitals Date Recorded Body mass index (BMI) Body mass index (BMI) Provider Name and Address Organization Details Last Updated DateTime 09/13/2022 21.8 kg/m2 21.1 kg/m2 Not Available [facility] 09/13/2022 01:05:57 Date Recorded Body height Body height Oxygen saturation Oxygen saturation in Arterial blood by Pulse oximetry Oxygen saturation Oxygen saturation in Arterial blood by Pulse oximetry Heart rate Systolic blood pressure Diastolic blood pressure Systolic blood pressure Diastolic blood pressure Provider Name and Address Organization Details Last Updated DateTime 3 160.02 cm 160.02 cm 98 % 98 % 98 % 98 % 116 /min 140 mm[Hg] 80 mm[Hg] 150 mm[Hg] 72 mm[Hg] Not Available [facility] 3 01:05:58 Date Recorded Heart rate Body temperature Body temperature Body weight Body weight Provider Name and Address Organization Details Last Updated DateTime 3 72 /min 96.9 [degF] 97.2 [degF] 16140.8 6 g 47172.4 9 g Not Available [facility] 3 01:05:59 Date Recorded Body height Provider Name an d Address Organization Details Last Updated DateTime 10/03/2022 160.02 cm ENOC Hammonds [employer] 10/03/2022 15:28:48 Date Recorded Body mass index (BMI) Body weight Provider Name and Address Organization Details Last Updated DateTime 10/03/2022 19.3 kg/m2 53031.57 g ENOC Hammonds [employer] 10/03/2022 15:29:46 Date Recorded Body temperature Provider Name a nd Address Organization Details Last Updated DateTime 10/03/2022 97.3 [degF] ENOC Hammonds [employer] [facility] [employer] 10/03/2022 15:30:05 Date Recorded Heart rate Provider Name an d Address Organization Details Last Updated DateTime 10/03/2022 102 /min PiedadENOC Hansen [facility] [employer] [facility] 10/03/2022 15:30:16 Date Recorded Oxygen saturation Oxygen saturation in Arterial blood by Pulse oximetry Provider Name and Address Organization Details Last Updated DateTime 10/03/2022 99 % 99 % PiedadENOC Hansen [facility] [employer] [facility] 10/03/2022 15:30:18 Date Recorded Body height Provider Name an d Address Organization Details Last Updated DateTime 07/24/2023 160.02 cm Aiyana ramos MA [facility] [employer] [facility] 07/24/2023 10:11:27 Date Recorded Body mass index (BMI) Body weight Provider Name and Address Organization Details Last Updated DateTime 07/24/2023 18.4 kg/m2 78141.61 g Aiyana Pedersen MA [facility] [employer] [facility] 07/24/2023 10:14:44 Date Recorded Body temperature Provider Name a nd Address Organization Details Last Updated DateTime 07/24/2023 98 [degF] Aiyana Pedersen MA [facility] [employer] [facility] 07/24/2023 10:14:46 Date Recorded Heart rate Provider Name an d Address Organization Details Last Updated DateTime 07/24/2023 121 /min Aiyana ramos [facility] [employer] [facility] 07/24/2023 10:14:57 Date Recorded Oxygen saturation Oxygen saturation in Arterial blood by Pulse oximetry Provider Name and Address Organization Details Last Updated DateTime 07/24/2023 99 % 99 % Aiyana Pedersen MA [facility] [employer] [facility] 07/24/2023 10:15:01 Date Recorded Systolic blood pressure Diastolic blood pressure Provider Name and Address Organization Details Last Updated DateTime 10/03/2022 158 mm[Hg] 80 mm[Hg] Piedad Argueta Salena [facility] [employer] [facility] 10/03/2022 15:31:09 Date Recorded Systolic blood pressure Diastolic blood pressure Provider Name and Address Organization Details Last Updated DateTime 07/24/2023 148 mm[Hg] 72 mm[Hg] Aiyana Pedersen MA [facility] [employer] [facility] 07/24/2023 10:16:32 Social History Question Answer Notes LastModified by Organizat ion Details LastModified Time Tobacco Smoking Status Never Smoker Not Available [employer] 09/13/2022 00:54:17 What Is Your Level Of Alcohol Consumption? Moderate 3 BEERS IN EVENING MIGRATION.[id number] Information not available 09/13/2022 How Many Years Have You Consumed Alcohol? 7 MIGRATION.[id number] Information not available 09/13/2022 In The 14 Days Before Symptom Onset, Have You Had Close Contact With A Laboratory-confir med COVID-19 While That Case Was Ill? No MIGRATION.87160 [id number] Information not available 09/13/2022 In The 14 Days Before Symptom Onset, Have You Had Close Contact With A Person Who Is Under Investigation For COVID-19 While That Person Was Ill? No MIGRATION.[id number] Information not available 09/13/2022 Sex: Unknown Functional Status None recorded. Mental Status None recorded. Family History Nothing Reported. Medical History No medical history recorded. Gynecological HistoryNo gynecological history recorded. Obstetrics History GPAL:G 0 P 0 0 0 0 Past Encounters Encounter ID Performer Location Encounter Start Date Encounter Closed Date Diagnosis/Indication Diagnosis SNOMED-CT Code Diagnosis ICD10 Code Diagnosis Note [id number] [facility] [address] 09/13/2020 00:00:00 09/13/2020 21:24:26 [id number] [facility] [address] [place] [address] [place] [address] 10/25/2021 00:00:00 10/25/2021 21:07:18 [id number] Esperanza Colin MD [facility] [address] [place] [address] [place] [address] 10/03/2022 15:25:13 10/03/2022 15:51:02 Adult health examination 389283088 Z00.00 Hyperlipidemia 38173805 E78.5 Screening for malignant neoplasm of breast 133423538 Z12.39 Screening for osteoporosis 704389546 Z13.820 Screening for malignant neoplasm of colon 269508597 Z12.11 Anxiety 49005988 F41.9 Essential hypertension 60768758 I10 [id number] [facility] [address] [facility] [place] [address] 06/22/2023 12:30:45 06/22/2023 13:20:25 Dysuria 88974538 R30.0 [id number] ALMA James [facility] [address] [facility] [place] [address] 07/24/2023 10:06:34 07/24/2023 11:16:19 Anxiety 92111132 F41.9 Hyperglycemia 59662671 R 73.9 Essential hypertension 37004021 I10 Hyperlipidemia 83870724 E78.5 Osteoporosis 25934408 M8 1.0 Health Concerns Section Related Observation LastModified by Organization Detai ls LastModified Time None Recorded Concern Status LastModified by Organization Details LastModified Time None Recorded Advance Directives Directive None Recorded Payers Encounter Date Sequence Insurance Name Policy Number Policy Walker Covered Member ID Walkre Member ID Guarantor Name 10/03/2022 1 [facility] (MEDICAID REPLACEMENT - HMO) [id number] Wandy Aguilar [id number] Wandy Aguilar 06/22/2023 1 [facility] (MEDICAID REPLACEMENT - HMO) [id number] Wandy Aguilar [id number] Wandy Aguilar 07/24/2023 1 [facility] (MEDICAID REPLACEMENT - HMO) [id number] Wandymaureen Aguilar [id number] Wandy Aguilar Notes Date Note Type Note Provider Name and Address Organization Details Recorded Time 10/03/2022 text/html Here for a wellness visit. Needs BW done. Not UTD with mammogram. There is no fmhx of colon cancer. Need colon cancer screening with cologuard. Has not had bone density test.No issues. Is tired a lot. No other complaints. Esperanza Colin MD [address], [facility] [address], [place], [address], [facility] [employer] 10/03/2022 18:43:43 07/24/2023 text/html needs her alprazolam, hgb a1c check ALMA James [address] [facility], [facility] [address], [place], [address], [place] [facility] 07/28/2023 11:26:42 OBGyn Episode No OBEpisode recorded.
[2024-08-16 21:57] VITALS: BP 158/72; PULSE 72; RESP 18; O2SAT 99
== END 2024-08-16 21:57 | disposition home or self-care (01) ==
PROVIDERS: Emergency Provider Internal Medicine Critical Care Medicine; PCP Family Medicine
DX: M70.61 Trochanteric bursitis, right hip (principal); M25.561 Pain in right knee; I10 Essential (primary) hypertension
CPT/HCPCS: 73562; 99283